=== PATIENT | female | born 1950 | race Caucasian/White ===

== ENCOUNTER 2017-10-27 04:22 | Emergency (ER) | payer MEDICARE, OTHER ==
[2017-10-27] MEDS ORDERED: Phenazopyridine 95 MG Tab PO ONE (05:14)
[2017-10-27] MEDS ORDERED: Nitrofurantoin Monohydrate/Macrocrystalline 100 MG Cap PO ONE (05:14)
--- NOTE | 2017-10-27 05:16 | EDM.PDOC ---
ED HPI GENERAL MEDICAL PROBLEM - General Chief Complaint: Genitourinary Problem Stated Complaint: UTI [id number] Time Seen by Provider: 10/27/17 05:12 Source of Information: Reports: Patient History Limitations: Reports: No Limitations - History of Present Illness INITIAL COMMENTS - FREE TEXT/NARRATIVE: c/o recurrent h/o UTI Sx tonight. - Related Data Allergies Allergy/AdvReac Type Severity Reaction Status Date / Time Penicillins Allergy Hives Verified 10/27/17 04:47 Home Meds: Home Meds Esomeprazole [NexIUM] 1 tab PO DAILY 10/27/17 [History] PARoxetine HCl [Paxil] 1 tab PO DAILY 10/27/17 [History] Potassium Chloride [Klor-Con M10] 2 tab PO BID 10/27/17 [History] Rosuvastatin [Crestor] 1 tab PO DAILY 10/27/17 [History] Past Medical History HEENT History: Reports: Impaired Vision Cardiovascular History: Reports: High Cholesterol, Hypertension Respiratory History: Reports: None Gastrointestinal History: Reports: GERD Genitourinary History: Reports: None STONE BREAKER History: Reports: Musculoskeletal History: Reports: None Neurological History: Reports: None Psychiatric History: Reports: Depression - Infectious Disease History Infectious Disease History: Reports: None - Past Surgical History GI Surgical History: Reports: ERCP Female Surgical History: Reports: Tubal Ligation Social & Family History - Tobacco Use Smoking Status *Q: Unknown Ever Smoked - Caffeine Use Caffeine Use: Reports: Coffee, Soda - Recreational Drug Use Recreational Drug Use: No ED ROS GENERAL - Review of Systems Review Of Systems: ROS reveals no pertinent complaints other than HPI. ED EXAM, RENAL/ - Physical Exam Exam: See Below Exam Limited By: No Limitations General Appearance: Alert, WD/WN, Mild Distress, Other (discomfort) Ears: Hearing Grossly Normal Throat/Mouth: Normal Voice, No Airway Compromise Head: Atraumatic Neck: Non-Tender, Full Range of Motion Respiratory/Chest: No Respiratory Distress Cardiovascular: Regular Rate, Rhythm GI/Abdominal: Soft, Tender, Other (suprapubic). No: Distended, Guarding, Rigid , Rebound Neurological: Alert, Oriented, Normal Cognition, Normal Gait, No Motor/Sensory Deficits Psychiatric: Normal Affect, Normal Mood Skin Exam: Warm, Dry, Normal Color Lymphatic: No Adenopathy Course - Vital Signs Last Recorded V/S: Last Vital Signs Temp 36.3 C 12/17/17 04:45 Pulse 96 10/27/17 04:45 Resp 20 10/27/17 04:45 BP 124/76 10/27/17 04:45 Pulse Ox 94 L 10/27/17 04:45 - Orders/Labs/Meds Labs: Laboratory Tests 10/27/17 Range/Units 04:35 Urine Color Red (YELLOW) Urine Appearance Turbid (CLEAR) Urine pH 8.5 (5.0-9.0) Ur Specific [place] >= 1.030 (1.005-1.030) Urine Protein 30 H (NEGATIVE) Urine Glucose (UA) 250 H (NEGATIVE) Urine Ketones 40 H (NEGATIVE) Urine Occult Blood Trace-lysed H (NEGATIVE) Urine Nitrite Positive H (NEGATIVE) Urine Bilirubin Negative (NEGATIVE) Urine Urobilinogen 0.2 (0.2-1.0) mg/dL Ur Leukocyte Esterase Large H (NEGATIVE) - Re-Assessments/Exams Free Text/Narrative Re-Assessment/Exam: 10/27/17 05:15 results discussed with pt. Departure - Departure Time of Disposition: 05:15 Disposition: Home, Self-Care 01 Condition: Good Clinical Impression: UTI, Urinary tract infectious disease - Discharge Information Instructions: Urinary Tract Infection, Adult, [id number] Additional Instructions: 1) drink lots of liquids 2) follow up with clinic or recheck as needed rx given; macrobid 100mg bid x 20 pyridium 100mg tid prn x 12
== END 2017-10-27 05:25 | disposition home or self-care (01) ==
LOC: DL.ED 04:22
DX: N39.0 Urinary tract infection, site not specified (principal); E78.00 Pure hypercholesterolemia, unspecified; I10 Essential (primary) hypertension; Z88.0 Allergy status to penicillin; Z79.899 Other long term (current) drug therapy
CPT/HCPCS: 81003; 99283; A9270

== ENCOUNTER 2020-11-02 07:56 | Day surgery (SDC) | payer MEDICARE, OTHER ==
[2020-11-02] MEDS ORDERED: Dexamethasone 4 MG/ML SDV IV ONE (07:57)
[2020-11-02] MEDS ORDERED: Sodium Chloride 0.9% 10 ML Syringe IV ONE (07:57)
[2020-11-02] MEDS ORDERED: Midazolam 1 MG/ML 2 ML SDV IV ONE (07:57)
[2020-11-02] MEDS ORDERED: Acetaminophen 325 MG Tab PO PRN (08:00)
[2020-11-02] MEDS ORDERED: Sodium Chloride 0.9% 10 ML Syringe FLUSH PRN (08:00)
[2020-11-02] MEDS ORDERED: Phenylephrine 10% Ophth Soln 5 ML Bot EYERT PRN (08:00)
[2020-11-02] MEDS ORDERED: Ondansetron 4 MG/2 ML SDV IVPUSH PRN (08:00)
[2020-11-02] MEDS: Proparacaine 0.5% Ophth Soln 15 ML Bottle EYERT ONE (08:22)
[2020-11-02] MEDS: Povidone-Iodine 5% Sterile Ophth Soln 30 ML Bottle EYERT ONE ×2 (08:23→09:16)
[2020-11-02] MEDS: Moxifloxacin 0.5% Ophth Soln 3 ML Bottle EYERT ONE (08:23)
[2020-11-02] MEDS: Tropicamide 1% Ophth Soln 15 ML Bottle EYERT ONE (08:24)
[2020-11-02] MEDS: Phenylephrine 10% Ophth Soln 5 ML Bot EYERT ONE ×2 (08:24→09:16)
[2020-11-02] MEDS: Timolol Maleate 0.5% Ophth Soln 5 ML Bottle EYERT ONE (08:25)
[2020-11-02] MEDS: Cataract Ophth Solution EYERT ONE (08:27)
[2020-11-02] MEDS: Tetracaine HCl/PF 0.5% 4 ML Bottle EYERT ONE (09:15)
[2020-11-02] MEDS: Lidocaine 1% 30 ML SDV ONE (09:15)
[2020-11-02] MEDS: Diclofenac Sodium 0.1% Ophth Soln 5 ML Bottle EYERT ONE (09:16)
[2020-11-02] MEDS: Apraclonidine 0.5% Ophth Soln 5 ML Bot EYERT ONE (09:16)
[2020-11-02] MEDS: Vancomycin 500 MG SDV EYERT ONE (09:17)
[2020-11-02] MEDS: Chondroitin Sulfate/Hyaluronate Sodium Ophth Inj 0.75 ML Syringe EYERT ONE (09:17)
[2020-11-02] MEDS: Balanced Salt Solution Ophth Irrig 500 ML Bottle IOCULAR ONE (09:17)
[2020-11-02] MEDS: Balanced Salt Solution Ophth Irrig 15 ML Bottle EYERT ONE (09:25)
--- NOTE | 2020-11-02 13:29 | OR ---
DATE: 11/02/2020 PREOPERATIVE DIAGNOSIS: Visually significant mixed cataract, right eye. POSTOPERATIVE DIAGNOSIS: Visually significant mixed cataract, right eye. PROCEDURE: Extracapsular cataract extraction with intraocular lens implant, right eye. ANESTHESIA: Topical/local MAC. COMPLICATIONS: None. INDICATION: Ms. Cruz was seen in the clinic. She was referred by her hall director, Dr. Peng. She is unhappy with her vision noticing a slow progressive change. She has difficulty seeing small letters, difficulty seeing television, difficulty with night driving, and she has noticed a slow progressive onset. Best spectacle corrected visual acuity is at the level of 20/25, oncoming light reveals visual acuity of 20/50. Examination reveals mixed nuclear and central cortical cataract. I explained options, offered cataract surgery and I explained risks preoperatively including the potential for infection, retinal detachment, loss of vision, need for additional surgery, and risks associated with anesthesia. We discussed implant options. She has requested a multifocal implant. I did explain the increased potential for glare, halo, and dysphotopsia. She also understands that she may still require glasses for some limited activities. She is unhappy with her vision, symptomatic, and requested surgery to reduce symptoms and function. She did try to update her refraction prior to cataract surgery and was unable to improve her symptoms with updated lenses. OPERATIVE DESCRIPTION: After informed consent was obtained and the risks, benefits, and alternatives were explained, the patient was brought to the operative suite and topical anesthesia was administered. The patient was then prepped and draped in the sterile fashion and attention was placed on the right eye. A sterile lid speculum was placed into the right eye to allow operative exposure. A full-thickness paracentesis was made in the temporal portion of the operative eye. Preservative-free lidocaine 0.1 mL was injected into the anterior chamber followed by viscoelastic. A full-thickness corneal incision was then made into the anterior chamber. A bent needle cystotome was used to create a small vickie in the anterior capsule. The capsulorrhexis forceps was then used to create a 360-degree curvilinear capsulorrhexis. The nucleus was then removed using a phacoemulsification handpiece and the remaining cortical material was then removed with irrigation and aspiration handpiece. Following removal of the cortical material, the capsular bag was then inspected and noted to be free of any holes or tears. Viscoelastic was then injected into the capsular bag and the intraocular lens was inserted into the capsular bag. The implant was oriented to correspond with preoperative corneal bailey made with the patient in the upright position. The viscoelastic material was then removed from both the anterior and posterior chambers and from behind the IOL. The lens and capsular bag were then reinspected. The IOL was well centered and the capsular bag intact. The wound and paracentesis sites were inspected and hydrated with balanced saline solution. Both were found to be self-sealing. The intraocular pressure was assessed digitally and found to be within normal range. A good red reflex was noted at the completion of the procedure. No complications occurred during the operation. At the completion of the procedure, Maxitrol, Voltaren, and Iopidine drops were placed into the operative eye. A sterile eye shield was placed over the operative eye and the patient was transported to the postoperative recovery area having tolerated the procedure well. Postoperative instructions were given along with a postoperative appointment. The patient was advised to call with any questions or concerns. [facility] /[id number]
== END 2020-11-02 10:34 | disposition home or self-care (01) ==
LOC: DL.SDS 07:56
PROVIDERS: ATTEND Ophthalmology
DX: H25.811 Combined forms of age-related cataract, right eye (principal); Z88.0 Allergy status to penicillin; E66.9 Obesity, unspecified; Z79.899 Other long term (current) drug therapy; Z68.38 Body mass index [BMI] 38.0-38.9, adult
CPT/HCPCS: 00140; 66984; J1100; J2001; J2250; J3370; V2632